=== PATIENT | male | born 1950 | race Caucasian/White ===

== ENCOUNTER → 2023-02-03 | Outpatient (CLI) | payer OTHER ==
[2023-02-04 03:23] LABS: Appearance,BF Hazy; Color,BF Yellow; Nucleated Cells, Body Fluid 264 /uL; RBC, Body Fluid 160 /uL
[2023-02-04 04:08] LABS: Mononuclear WBC,Body Fluid 29 %; Polynuclear WBC,Body Fluid 71 %; Total Cells Counted,Body Fluid 100
[2023-02-04 09:47] LABS: Synovial Fld Crystals Seen (None Seen)
== END | disposition home or self-care (01) ==
LOC: LABPRL 16:25
PROVIDERS: ATTEND Orthopaedic Surgery
DX: M17.12 Unilateral primary osteoarthritis, left knee (principal); M11.262 Other chondrocalcinosis, left knee; M10.9 Gout, unspecified; E11.9 Type 2 diabetes mellitus without complications; I50.9 Heart failure, unspecified; N28.9 Disorder of kidney and ureter, unspecified
CPT/HCPCS: 87070; 87075; 87205; 89050; 89060

== ENCOUNTER → 2024-01-12 | Outpatient (CLI) | payer OTHER ==
[2024-01-12 13:55] VITALS: BP 150/65; PULSE 60; RESP 16; TEMP 97.9
--- NOTE | 2024-01-12 14:16 | P.SLEEP ---
History of Present Illness H&P Date: 01/12/24 This is a 73-year-old male patient was coming into the sleep center to establish care regarding his obstructive sleep apnea. The patient was diagnosed having HUNTER back in 2019. His original sleep study was done through his sleep center in [facility] and the patient has been followed up by Dr. Mcbride. The patient has multiple other medical problems and comorbidities. He has been morbidly obese and appears a body mass index of 50.8. He has history of congestion heart failure and the patient has been hospitalized for decompensated heart failure at [facility]. He is also known to have hypertension, diabetes mellitus type 2, chronic kidney disease, chronic anemia, BPH and he has a large anterior wall abdominal hernia. His CHF seems to be compensated at this point in time. He continues to have edema and chronic swelling in lower extremities. Patient has updated his machine recently and apparently the patient has a ResMed 11 BiPAP unit which is set at S pressure of 24 over 16 cm of water. Starting EPAP pressures of 8 with a 20 minutes of REM time. The patient is using a Simplus fullface mask, medium size. The patient has been very compliant with his BiPAP therapy. His main complaint is some oral dryness. Millimeter hypersomnia or sleepiness during the day. His sleep quality is improved considerably while being on BiPAP therapy. At this point in time, the patient is going to bed around midnight waking up at 8 AM in the morning. No snoring unless he uses the BiPAP machine. Denies having any apneas while on treatment. No major hypersomnia or sleepiness or tiredness during the day. No issues with memory or concentration. No grinding of the teeth. No sleepwalking or sleep talking. No heartburn. No chest pain. No shortness of breath during sleep. I checked the patient's compliance data from his machine. Over the past 90 days, the patient has tried the machine more than 4 hours 5% of the time. He has been averaging around 8 hours of BiPAP use per night. His leak is in order of 30 L/min and a tidal volume of 680 with a minute ventilation of 8.5 L/min and respiratory rate of 12. His AHI is down to 6.4 with a central apnea index of 5.3. Review of Systems Constitutional: Reports daytime sleepiness, Reports fatigue, Reports weight gain Eyes: denies as per HPI, denies blurred vision, denies bulging eye, denies decreased vision, denies diplopia, denies discharge, denies dry eye, denies irritation, denies itching, denies pain, denies photophobia, denies loss of peripheral vision, denies loss of vision, denies tunnel vision/blind spots Ears: deny: decreased hearing, ear discharge, earache, tinnitus Ears, nose, mouth and throat: Reports as per HPI Breasts: absent: as per HPI, gynecomastia Cardiovascular: Reports decreased exercise tolerance, Reports dyspnea on exertion, Reports edema Respiratory: Reports sleep apnea Gastrointestinal: Reports as per HPI Genitourinary: Reports as per HPI Musculoskeletal: Reports as per HPI Musculoskeletal: bilateral: ankle swelling, absent: ankle pain, ankle stiffness, as per HPI, elbow pain, elbow stiffness, elbow swelling, foot pain, foot stiffness, foot swelling, hand pain, hand stiffness, hand swelling, hip pain, hip stiffness, hip swelling, knee pain, knee stiffness, knee swelling, shoulder pain, shoulder stiffness, shoulder swelling, wrist pain, wrist stiffness, wrist swelling Integumentary: Reports as per HPI Neurological: Reports as per HPI Psychiatric: Reports as per HPI, Reports hypersomnia, Reports sleep disturbances Endocrine: Reports as per HPI, Reports fatigue Hematologic/Lymphatic: Reports as per HPI Allergic/Immunologic: Reports as per HPI Past Medical History Past Medical History: Heart Failure, Diabetes Mellitus, Hyperlipidemia, Hypertension, Prostate Disorder, Renal Disease, Sleep Apnea/CPAP/BIPAP Additional Past Medical History / Comment(s): Anterior abdominal wall hernia, chronic anemia Past Surgical History: Adenoidectomy Medications and Allergies Home Medications and Allergies Comment(s): Medications include Allopurinol 100 mg p.o. daily Amlodipine 10 mg p.o. daily Iron as injections on a monthly basis Lipitor 40 mg p.o. daily Coreg 12.5 mg twice a day Doxazosin 8 mg p.o. daily Farxiga 5 mg p.o. daily Hydralazine 100 mg 3 times daily Imdur 30 mg 3 times daily Lantus insulin 38 units in a.m. Lisinopril 40 mg p.o. daily Metoprolol 2.5 mg MWF Torsemide 20 mg 2 tablets in the morning. Physical Exam Vitals: Vital Signs Temp Pulse Resp BP Pulse Ox 01/12/24 13:53 97.9 F 60 16 150/65 97 Morbidly obese,, comfortable, no acute distress. Body mass index is 50.8. Current weight is 320 pounds. The patient's [place] score is measured to be 0. Morbidly obese The patient appeared well nourished and normally developed. Vital signs as documented. Head exam is unremarkable. No scleral icterus or corneal arcus noted. Neck is without jugular venous distension, thyromegaly, or carotid bruits. Carotid upstrokes are brisk bilaterally. The patient has a Mallampati class IV with significant crowding of the posterior pharynx Lungs are clear to auscultation and percussion. Diminished breath sound lung bases bilaterally Cardiac exam reveals the PMI to be normally sized and situated. Rhythm is regula r. First and second heart sounds normal. No murmurs, rubs or gallops. Abdominal exam reveals normal bowel sounds, no masses, no organomegaly and no aortic enlargement. Large anterior abdominal wall hernia Extremities are edematous and both femoral and pedal pulses are normal. Examination of the skin revealed no evidence of significant rashes, suspicious appearing nevi or other concerning lesions. Neurologically, the patient is awake and alert and the patient does not have any focal neurological deficit. Cranial nerves are essentially intact. Assessment and Plan Plan: Obstructive sleep apnea, severity is unknown as the patient's original sleep study was done back in 2019 at an outside sleep center. The patient is currently utilizing a BiPAP, ResMed 11, at a pressure of 24/16 cm of water. He is also using a Simplus fullface mask. Chronic hypersomnia, improved with BiPAP therapy Morbid obesity with a BMI of 50.8 Congestion heart failure, likely systolic in nature Chronic lower extremity edema Chronic kidney disease Anemia of chronic disease Diabetes mellitus type 2 Hypertension Large anterior abdominal wall hernia BPH Plan I evaluated this patient's BiPAP machine. The patient has a ResMed 11, S mode, and the current settings of 24/16 cm of water. He is having some residual central apneic events as the patient's AHI was 6.4 with a central apnea index of 5.3. I would suggest continuing the same mask interface which is a medium size Simplus fullface mask. I also suggested switching this patient to a VPAP auto mode and adjusting his pressure setting to an EPAP minimum of 10 and a maximum pressure of 24 and a pressure support of 4. I also changed the amplification system into manual with a temperature of the tube being at 74 F and admitted to levels at 6. Continue optimizing CHF. See me back in the office in 6 weeks time to evaluate his clinical response to VPAP auto. May consider changing his mask interface or later stage. Sleep Note - Sleep Data ESS Total: 0 - Sleep Note Sleep Note: Temperature: 97.9 F Pulse Rate: 60 Respiratory Rate: 16 Blood Pressure: 150/65 SpO2: 97 Height: Weight: BMI: Neck Circumference: 17.2
== END ==
LOC: 3 N SLEEP 13:04
PROVIDERS: ATTEND Internal Medicine Critical Care Medicine
DX: G47.33 Obstructive sleep apnea (adult) (pediatric) (principal); G47.10 Hypersomnia, unspecified; R60.0 Localized edema; E11.22 Type 2 diabetes mellitus with diabetic chronic kidney disease; I13.0 Hypertensive heart and chronic kidney disease with heart failure and stage 1 through stage 4 chronic kidney disease, or unspecified chronic kidney disease; N18.9 Chronic kidney disease, unspecified; D63.1 Anemia in chronic kidney disease; E66.01 Morbid (severe) obesity due to excess calories; N40.0 Benign prostatic hyperplasia without lower urinary tract symptoms; K43.9 Ventral hernia without obstruction or gangrene; Z68.43 Body mass index [BMI] 50.0-59.9, adult
CPT/HCPCS: 99211

== ENCOUNTER → 2024-03-15 | Outpatient (CLI) | payer MEDICARE ==
[2024-03-15 13:23] VITALS: BP 153/53; PULSE 64; RESP 18; TEMP 97.7
--- NOTE | 2024-03-15 14:08 | P.PN ---
Progress Note - Text Progress Note Date: 03/15/24 73-year-old male patient, known history of obstructive sleep apnea, original study was done through Dr. Mcbride, coming in for a follow-up. The patient currently has a ResMed 11 BiPAP unit that was originally set at the pressures of 20/16 cm of water. During my last evaluation, I am modified to testing in a place the patient on a CPAP room with a EPAP minimum of 10 and a maximum pressure of 24 and a pressure support of 4. The adjustments were made and the patient is coming to see me back for a follow-up to assess his overall clinical response. With adjustments made, the patient is feeling better. He is able to tolerate the BiPAP without any major difficulties. He is wearing the BiPAP machine every night. Based on the compliance data collected from the machine, the patient has been averaging around 8.4 hours of BiPAP use per night. His 95th percentile pressure 14/10 cm of water. The generated tidal volume is 460 cc with a respiratory rate of 12 and a minute ventilation of 7.3 L/min. His leak is only 1 L/min and the patient is using a Simplus medium size fullface mask. His AHI is down to 1.4. No central events noted. No major hypersomnia or sleepiness during the day. No other new complaints. Weight remains stable. Full review of system was done and it was essentially negative other than things mentioned above in history of present illness BP is 153/53, pulse 64, respirations 18, temperature 97.7, weight is 311 Morbidly obese The patient appeared well nourished and normally developed. Vital signs as documented. Head exam is unremarkable. No scleral icterus or corneal arcus noted. Neck is without jugular venous distension, thyromegaly, or carotid bruits. Carotid upstrokes are brisk bilaterally. The patient has a Mallampati class IV with significant crowding of the posterior pharynx Lungs are clear to auscultation and percussion. Diminished breath sound lung bases bilaterally Cardiac exam reveals the PMI to be normally sized and situated. Rhythm is regular. First and second heart sounds normal. No murmurs, rubs or gallops. Abdominal exam reveals normal bowel sounds, no masses, no organomegaly and no aortic enlargement. Large anterior abdominal wall hernia Extremities are edematous and both femoral and pedal pulses are normal. Examination of the skin revealed no evidence of significant rashes, suspicious appearing nevi or other concerning lesions. Neurologically, the patient is awake and alert and the patient does not have any focal neurological deficit. Cranial nerves are essentially intact. Assessment Obstructive sleep apnea, severity is unknown as the patient's original sleep study was done back in 2019 at an outside sleep center. The patient is currently utilizing a BiPAP, ResMed 11, and the patient is currently on a VPAP auto with a EPAP of 10 and a maximum pressure of 24 and a pressure support of 4. Utilizing a Simplus fullface mask. Chronic hypersomnia, improved with BiPAP therapy Morbid obesity with a BMI of 50.8 Congestion heart failure, likely systolic in nature Chronic lower extremity edema Chronic kidney disease Anemia of chronic disease Diabetes mellitus type 2 Hypertension Large anterior abdominal wall hernia BPH Plan Treatment is successful we will continue VPAP auto mode and adjusting his pressure setting to an EPAP minimum of 10 and a maximum pressure of 24 and a pressure support of 4. The temperature of the tube being at 74 F and admitted to levels at 6. Continue optimizing CHF. See me back in the office in 1 years time in follow-up.
== END ==
LOC: 3 N SLEEP 13:04
PROVIDERS: ATTEND Internal Medicine Critical Care Medicine
DX: G47.33 Obstructive sleep apnea (adult) (pediatric) (principal); G47.10 Hypersomnia, unspecified; I13.0 Hypertensive heart and chronic kidney disease with heart failure and stage 1 through stage 4 chronic kidney disease, or unspecified chronic kidney disease; I50.9 Heart failure, unspecified; N18.9 Chronic kidney disease, unspecified; E66.01 Morbid (severe) obesity due to excess calories; E11.22 Type 2 diabetes mellitus with diabetic chronic kidney disease; D63.1 Anemia in chronic kidney disease; K43.9 Ventral hernia without obstruction or gangrene; Z68.43 Body mass index [BMI] 50.0-59.9, adult
CPT/HCPCS: 99212